=== PATIENT | female | born 1935 | race Caucasian/White ===

== ENCOUNTER 2020-05-12 10:54 | Outpatient (CLI) | payer MEDICARE, BC | END 2020-05-12 10:55 | disposition critical access hospital (66) | LOC: EMS 10:54 | PROVIDERS: ATTEND Emergency Medicine | DX: R55 Syncope and collapse (principal) | CPT/HCPCS: A0425; A0429 ==

== ENCOUNTER 2020-05-12 11:27 | Inpatient (IN) | payer MEDICARE, BC ==
--- NOTE | 2020-05-12 11:43 | ED Physician Documentation ---
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 Today she was sitting on the commode because she has been constipated and after she relieved the constipation she had a flood of diarrhea and following that she became diaphoretic nauseous and had a syncopal episode. She was brought to the floor by her family and picked up by medics who were unable to establish an IV in route. She indicates that she has pain in her spine and it is difficult to get in and out of bed and she has decreased her water intake to avoid going to the bathroom. She moved here 2 days ago. She has not had to do the work of moving. She has a radiation oncologist in [facility] and she has completed radiation to the left lung mass in January and the mass has shrunk. She developed back pain and a PET scan was done that has demonstrated wide spread bony metastasis and liver and GI mets. The patient does not currently have an oncologist but has an appointment to see Oncology in [place] on the of this month. She is being admitted to hospice tomorrow. She felt that this might be the end this morning. (She was hoping) Review of Systems Constitutional: denies: Fever Eyes: denies: Decreased vision Ears: denies: Ear pain Nose: denies: Congestion Throat: denies: Sore throat Cardiac: denies: Chest pain / pressure, Palpitations, Pedal edema, Calf pain Respiratory: reports: Dyspnea, Cough GI: reports: Nausea, Vomiting, Constipation, Diarrhea : denies: Dysuria, Frequency Skin: denies: Rash Musculoskeletal: denies: Neck pain, Back pain, Extremity pain Neurologic: reports: Generalized weakness. denies: Focal weakness, Numbness PD PAST MEDICAL HISTORY - Present Medications Home Medications: Ambulatory Orders Medication Instructions Recorded Confirmed Gabapentin [Neurontin] 300 mg PO DAILY PM 05/12/20 05/12/20 Hydrocodone/Acetaminophen 1 each PO PRN PRN 05/12/20 05/12/20 [Hydrocodone-Acetamin 10-300 mg] - Allergies Allergies/Adverse Reactions: Allergies Allergy/AdvReac Type Severity Reaction Status Date / Time metformin AdvReac Unknown Verified 05/12/20 12:25 PD ED PE NORMAL - Vitals Vital signs reviewed: Yes (Hypotensive) - General General: No acute distress, Well developed/nourished, Other (Pale appearing 84-year-old female who speaks quietly and takes effort to speak. She appears to be struggling for a breath as well. She periodically has some raspy breathing) - HEENT HEENT: Atraumatic, PERRL, EOMI - Neck Neck: Supple, no meningeal sign, No bony TTP - Cardiac Cardiac: RRR, No murmur - Respiratory Respiratory: Other - Abdomen Abdomen: Soft, Non tender - Back Back: No CVA TTP, No spinal TTP - Derm Derm: Normal color, Warm and dry, No rash - Extremities Extremities: No deformity, No edema, Other (legs are in compression hose. 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, No motor deficit, No sensory deficit, Normal speech Eye Opening: Spontaneous Motor: Obeys Commands Verbal: Oriented GCS Score: 15 - Psych Psych: Normal mood, Normal affect Results - Vitals Vitals: Vital Signs - 24 hr 05/12/20 05/12/20 05/12/20 11:28 12:59 13:45 Temperature 35.8 C L Heart Rate 86 73 Respiratory 16 19 Rate Blood Pressure 93/41 L 121/51 L 125/49 L O2 Saturation 93 96 05/12/20 05/12/20 14:57 16:09 Temperature Heart Rate 80 82 Respiratory 21 21 Rate Blood Pressure 144/59 H 104/94 H O2 Saturation 98 93 Oxygen O2 Source Room air - EKG (time done) 1138 Rate: Rate (enter#) (86) Rhythm: NSR Ischemia: Non specific changes Compare to prior EKG: Old EKG unavailable Computer interpretation: Agree with computer - Labs Labs: Laboratory Tests 05/12/20 05/12/20 05/12/20 12:16 12:16 12:38 WBC 17.2 H RBC 4.07 L Hgb 11.1 L Hct 36.4 L MCV 89.4 MCH 27.3 MCHC 30.5 L RDW 13.9 Plt Count 360 MPV 9.8 Neut # (Auto) 14.8 H Lymph # (Auto) 0.6 L Charles # (Auto) 0.8 Eos # (Auto) 0.7 Baso # (Auto) 0.1 Absolute Nucleated RBC 0.00 Nucleated RBC % 0.0 Sodium 139 Potassium 2.9 L Chloride 97 L Carbon Dioxide 26 Anion Gap 16.0 H BUN 30 H Creatinine 1.0 Estimated GFR (MDRD) 53 L Glucose 183 H Lactic Acid 1.7 Calcium 9.2 Total Bilirubin 0.6 AST 22 ALT 14 Alkaline Phosphatase 388 H Total Protein 5.7 L Albumin 2.8 L Globulin 2.9 Albumin/Globulin Ratio 1.0 Lipase 25 - Rads (name of study) chest Radiology: Prelim report reviewed (Impression: 1. No acute cardiopulmonary disease process. 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 She collapsed today with her level of dehydration. She responded to IV fluids but remains weak. Her daughter is wanting to take her home and has set up hospice for tomorrow. The patient feels profoundly weak and feels that she needs to be in the hospital. She will see oncology next week and she will refuse chemo. She may be amenable to a biologic and will need palliative care until her appointment with the oncologist. Departure - Departure Disposition: ED Place in Observation Clinical Impression: Hypokalemia, Dehydration, Metastatic adenocarcinoma, Syncope and collapse
[2020-05-12] MEDS ORDERED: SODIUM CHLORIDE 0.9% 1,000 ML IV STA ×2 (12:23→16:50)
[2020-05-12 12:30] LABS: BASOPHILS # (AUTO) 0.1 10^3/uL (0.0-0.1); BASOPHILS % (AUTO) 0.4 %; EOSINOPHILS # (AUTO) 0.7 10^3/uL (0.0-0.7); EOSINOPHILS % (AUTO) 3.8 %; HCT - HEMATOCRIT 36.4 % (37.0-47.0); HGB - HEMOGLOBIN 11.1 g/dL (12.0-16.0); LYMPHOCYTES # (AUTO) 0.6 10^3/uL (1.5-3.5); LYMPHOCYTES % (AUTO) 3.2 %; MEAN CORPUSCULAR HEMOGLOBIN 27.3 pg (27.0-31.0); MEAN CORPUSCULAR HGB CONC 30.5 g/dL (32.0-36.0); MEAN CORPUSCULAR VOLUME 89.4 fL (81.0-99.0); MEAN PLATELET VOLUME 9.8 fL (7.9-10.8); MONOCYTES # (AUTO) 0.8 10^3/uL (0.0-1.0); MONOCYTES % (AUTO) 4.7 %; NEUTROPHILS # (AUTO) 14.8 10^3/uL (1.5-6.6); NEUTROPHILS % (AUTO) 86.2 %; PLT - PLATELET COUNT 360 10^3/uL (130-450); RED BLOOD COUNT 4.07 10^6/uL (4.20-5.40); RED CELL DISTRIBUTION WIDTH 13.9 % (12.0-15.0); WHITE BLOOD COUNT 17.2 x10^3/uL (4.8-10.8)
[2020-05-12 12:39] LABS: ALBUMIN 2.8 g/dL (3.2-5.5); BILIRUBIN,TOTAL 0.6 mg/dL (0.2-1.0); CALCIUM 9.2 mg/dL (8.5-10.3); POTASSIUM 2.9 mmol/L (3.5-5.0); TOTAL PROTEIN 5.7 g/dL (6.7-8.2)
--- NOTE | 2020-05-12 12:56 | XRAY Report ---
PROCEDURE: Chest 1 View X-Ray INDICATIONS: soa TECHNIQUE: One view of the chest was acquired. COMPARISON: None FINDINGS: Surgical changes and devices: None. Lungs and pleura: No pleural effusions or pneumothorax. Lungs are clear. Mediastinum: Mediastinal contours appear normal. Heart size is normal. Bones and chest wall: Left sided rib fractures of indeterminate age. No suspicious bony lesions. Ov erlying soft tissues appear unremarkable. IMPRESSION: 1. No acute cardiopulmonary disease process. 2. Left third, fourth and fifth rib fractures of indeterminate age. Reviewed by: Shwetha Pro MD, PhD on 05/12/2020 12:54 PM PDT Approved by: Shwetha Pro MD, PhD on 05/12/2020 12:54 PM PDT Station ID: [id number]
[2020-05-12] MEDS ORDERED: POTASSIUM CHLOR 10 MEQ/100 ML 10 MEQ/100 ML BAG IV STA (13:13)
[2020-05-12] MEDS ORDERED: POTASSIUM CHLORIDE 20 MEQ TABLET PO STA (13:13)
[2020-05-12] MEDS ORDERED: FOLIC ACID INJ 1 MG, THIAMINE INJ 100 MG, MAGNESIUM SULFATE 2 GM, MULTIVITAMIN 10 ML in... IV STA ×5 (13:14)
[2020-05-12] MEDS ORDERED: POTASSIUM CHLORIDE 20 MEQ/15 ML UDC PO STA (13:26)
[2020-05-12] MEDS ORDERED: ONDANSETRON 4 MG/2 ML VIAL IVP PRN (16:59)
[2020-05-12] MEDS ORDERED: ONDANSETRON ODT 4 MG TABLET TL PRN (16:59)
[2020-05-12 17:00] LABS: BILIRUBIN,URINE NEGATIVE (NEGATIVE); GLUCOSE, URINE (UA) NEGATIVE (NEGATIVE); KETONES,URINE (UA) NEGATIVE (NEGATIVE); LEUKOCYTE ESTERASE, URINE SMALL (NEGATIVE); NITRITE,URINE POSITIVE (NEGATIVE); OCCULT BLOOD,URINE NEGATIVE (NEGATIVE); PH,URINE 5.5 PH (5.0-7.5); PROTEIN,URINE TRACE mg/dL (NEGATIVE); UROBILINOGEN,URINE 0.2 (NORMAL) E.U./dL (NORMAL)
[2020-05-12 17:01] LABS: CLARITY,URINE CLOUDY (CLEAR)
[2020-05-12] MEDS ORDERED: oxyCODONE 5 MG TABLET PO PRN (17:04)
[2020-05-12 17:10] LABS: BACTERIA,URINE Many /HPF (None Seen); MUCUS,URINE Few Strands; RBC,URINE 0-5 /HPF (0-5); SQUAMOUS EPITHELIAL CELL,UR MANY Squamous (<= Few); WBC,URINE >25 /HPF (0-5)
--- NOTE | 2020-05-12 18:21 | HISTORY & PHYSICAL EXAMINATION ---
Chief Complaint - Chief Complaint Chief Complaint: Passed out History of Present Illness - Admitted From Admitted From:: Home - History Obtained From Records Reviewed: Yes History obtained from: Patient, Daughter, ER Physician, EMR, Outside records. 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 She tells me that she has been quite weak and fatigued these past few days with poor oral intake. She also had diarrhea a few days ago which stopped and then she became constipated. This morning she went to go have a bowel movement she had another episode of diarrhea when all of a sudden she felt nauseous, she did not vomit, a nd diaphoretic. She passed out immediately after. She reports no chest pain or palpitations from what she can recall prior to the event. She reports no prior episodes of syncope. She currently denies any chest pain or dyspnea. She reports an occasional cough that occurs just at night. She recently had a PET scan as there was concern for metastatic disease and this did unfortunately confirm metastatic disease involving most of her bones as well as liver metastasis. She had just moved to [facility] from [place] just 2 days ago to be closer to her daughter. She is scheduled to see oncology at [facility] in [place] in about 8 days for follow-up. I did speak with the patient's daughter who states that she contacted hospice and there was a plan to possibly admit her under hospice care tomorrow. The patient has made it quite clear that she does not want any aggressive treatment. She would not want chemotherapy even if it was offered to her. She states that she has not been ambulating very much due to left leg pain at the hip which has been present for quite a few months. She normally uses a walker to help her pivot into a wheelchair which she uses to get around. She reports minimal abdominal pain at this time. She has not noticed any blood in her stool. Denies any dysuria, urgency. She denies any focal deficits just feels generally weak. In the emergency department, she was found to be afebrile. Her heart rate was in the 80s. She was initially hypotensive with systolic in the 90s but this improved after receiving IV fluids. She was not tachypneic and saturating well on room air. Were significant for a white count of 17.2 with a left shift. Her potassium was 2.9. BUN was 30 and her creatinine was 1.0. Chest x-ray revealed 3 left rib fractures of undetermined age. Given her presentation, medicine was consulted for admission. I did discuss goals of care with the patient who confirms that she is a DNR. History - Past Medical History Cardiovascular: reports: Hypertension Respiratory: reports: None, Other (Adenocarcinoma of the left upper lobe.) Neuro: reports: None Endocrine/Autoimmune: reports: HyPOthyroidism GI: reports: GERD - Family & Social History Family History Comment/Other: Her mother in her 40s from breast cancer. Living arrangement: At home Living Situation: With family Social History Notes: She moved from [facility] to be closer to her daughter. She smoked a pack a day for about 35 years but quit in the early s. Meds/Allgy - Home Medications Home Medications: Ambulatory Orders Medication Instructions Recorded Confirmed Aspirin [[place] Aspirin] 81 mg PO 05/12/20 Gabapentin [Neurontin] 300 mg PO DAILY PM 05/12/20 05/12/20 Hydrochlorothiazide 05/12/20 Hydrocodone/Acetaminophen 1 each PO PRN PRN 05/12/20 05/12/20 [Hydrocodone-Acetamin 10-300 mg] Lisinopril [Prinivil] 10 mg PO 05/12/20 Omeprazole Magnesium 20 mg PO 05/12/20 traZODone [Desyrel] 100 mg PO HS 05/12/20 05/12/20 - Allergies Allergies/Adverse Reactions: Allergies Allergy/AdvReac Type Severity Reaction Status Date / Time metformin AdvReac Unknown Verified 05/12/20 12:25 Review of Systems - Constitutional Constitutional: reports: Fatigue, Malaise, Weakness, Poor appetite. denies: Fever, Chills - Ears, Nose & Throat Ears, Nose & Throat: denies: Nasal discharge - Cardiovascular Cariovascular: reports: Syncope. denies: Chest pain, Edema, Exertional dyspnea, Decr. exercise tolerance - Respiratory Respiratory: reports: Cough, Sputum production. denies: SOB at rest, SOB with exertion - Gastrointestinal Gastrointestinal: reports: Diarrhea, Change in bowel habits, Nausea. denies: Abdominal pain, Bloody stools, Vomiting - Genitourinary Genitourinary: denies: Dysuria, Urgency - Musculoskeletal Musculoskeletal: reports: Muscle pain, Limited range of motion, Joint pain - Integumentary Integumentary: denies: Rash - Neurological Neurological: reports: General weakness. denies: Focal weakness, Numbness - All Other Systems All Other Systems: reports: Reviewed and negative Prior Level of Functionality: She fortunately has declined from a physical standpoint. She mainly gets around with a wheelchair and will use a walker to pivot. Exam - Vital Signs Reviewed Vital Signs: Yes Vital Signs: Vital Signs x48h Temp Pulse Resp BP Pulse Ox 05/12/20 17:14 83 22 133/57 H 97 05/12/20 16:09 82 21 104/94 H 93 05/12/20 14:57 80 21 144/59 H 98 05/12/20 13:45 73 19 125/49 L 96 05/12/20 12:59 121/51 L 05/12/20 11:28 35.8 C L 86 16 93/41 L 93 - Physical Exam General Appearance: positive: No acute distress, Alert Eyes Bilateral: positive: Normal inspection, Conjunctivae nml ENT: positive: Dry mucous membranes. negative: No signs of dehydration Neck: positive: Nml inspection Respiratory: positive: No respiratory distress. negative: Wheezes, Rales Cardiovascular: positive: Regular rate & rhythm, Systolic murmur. negative: Tachycardia Abdomen: positive: Non-tender, No distention. negative: Tenderness Skin: positive: Warm, Dry Extremities: positive: No pedal edema, Other (No left lower extremity deformity or tenderness upon palpation.) Neurologic/Psychiatric: negative: Disoriented to person, Disoriented to place Conclusion/Plan - Problem List (1) Syncope and collapse Conclusion/Plan: This appears to be a vasovagal episode but this caused related to orthostasis given her poor oral intake. She does have a murmur on exam as well so this could be of cardiac etiology. Her EKG did reveal 1 PVC otherwise it was just a sinus rhythm. Troponin is pending. At this time we will hydrate her with IV fluids and check orthostatics. Obtain echocardiogram. Monitor on telemetry. We will hope to discharge her tomorrow. (2) Hypertension Conclusion/Plan: Her blood pressure is now stable in the 130 systolic. She was initially hypotensive. We will look to resume her home antihypertensives tomorrow. (3) Diarrhea Conclusion/Plan: This is a likely cause of her dehydration and likely contributed to her syncope. She has continued to have diarrhea in the emergency department. We will check C. difficile at this is negative we will start her on Imodium as needed. Continue IV fluids. Diet as tolerated. (4) Metastatic adenocarcinoma Conclusion/Plan: She unfortunately has metastatic adenocarcinoma of the lung. This was confirmed on PET scan. She is following up with oncology next week at [facility] in [place] and family has already discussed hospice with the patient likely being evaluated tomorrow. She will continue outpatient follow-up once discharged. (5) Dehydration Conclusion/Plan: She does appeared dehydrated despite her normal renal function. She has dry oral mucosa. Is likely due to poor oral intake and diarrhea. We will hydrate her with IV fluids and check her stool for C. difficile. (6) Left hip pain Conclusion/Plan: She complains of left hip pain. Given the metastatic disease, will obtain an x- ray to rule out metastatic disease as a cause of her pain. We will continue her home medications. (7) Hypokalemia Conclusion/Plan: This is likely related to GI losses. We will replete this. - Lab Results Lab results reviewed: Yes Fish Bones: 05/12/20 12:16 05/12/20 12:16 - Diagnostic Imaging Results Diagnostic Imaging Results: positive: Final report reviewed - EKG Results EKG Interpreted Independently: Yes EKG Comparison: Old EKG unavailable EKG Findings: She reveals a sinus rhythm with [address] segment changes Core Measures - Anticipated LOS I expect patient to be DC'd or transferred within 96 hours.: Yes - Issues Hospital Issues and Management Plan: 84-year-old female with metastatic lung cancer presents with syncope likely due to a vasovagal episode or orthostasis from diarrhea. Will place in observation for IV fluids, echocardiogram, telemetry. - DVT/VTE - Prophylaxis VTE/DVT Device ordered at admit?: Yes VTE/DVT Prophylaxis med ordered at admit?: Yes
[2020-05-12] MEDS: LACTATED RINGERS 1,000 ML IV SCH (18:40)
[2020-05-12] MEDS: SODIUM CHLORIDE FLUSH 0.9% 10 ML SYRINGE IVP SCH ×2 (18:47→23:39)
[2020-05-12 19:05] LABS: B. PARAPERTUSSIS- RESP PCR PAN NOT DETECTED; B. PERTUSSIS- RESP PCR PANEL NOT DETECTED; C. PNEUMONIAE- RESP PCR PANEL NOT DETECTED; CORONAVIRUS 229E-RESP PCR NOT DETECTED; CORONAVIRUS HKU1-RESP PCR NOT DETECTED; CORONAVIRUS NL63-RESP PCR NOT DETECTED; CORONAVIRUS OC43-RESP PCR NOT DETECTED; HUMAN METAPNEUMOVIRUS NOT DETECTED; INFLUENZA A- RESP PCR PANEL NOT DETECTED; INFLUENZA B - RESP PCR PANEL NOT DETECTED; M. PNEUMONIAE- RESP PCR PANEL NOT DETECTED; PARAINFLUENZA VIRUS 1 NOT DETECTED; PARAINFLUENZA VIRUS 2 NOT DETECTED; PARAINFLUENZA VIRUS 3 NOT DETECTED; PARAINFLUENZA VIRUS 4 NOT DETECTED; RHINOVIRUS/ENTEROVIRUS NOT DETECTED; RSV- RESP PCR PANEL NOT DETECTED; SARS-CoV-2 -RESP PCR PANEL NOT DETECTED
--- NOTE | 2020-05-12 19:52 | XRAY Report ---
PROCEDURE: Hip w/Pelvis 2-3V LT INDICATIONS: Left hip pain; metastatic lung cancer TECHNIQUE: AP pelvis with lateral view(s) of the bilateral hip(s). COMPARISON: None. FINDINGS: Exam is limited by osseous demineralization and patient body habitus. Somewhat abnormal lytic appeara nce of the left femoral head when compared with the right, nonspecific. No definite evidence of fract ure or discrete lesion. The remainder of the bony pelvis appears intact. IMPRESSION: Nonspecific asymmetric lytic appearance of the left femoral head. This examination is li mited by body habitus and demineralized appearance of the bones. CT or MRI examination of the left hi p recommended if there is concern for fracture or metastasis. Reviewed by: Michele Baeza MD on 05/12/2020 7:51 PM PDT Approved by: Michele Baeza MD on 05/12/2020 7:51 PM PDT Station ID: [id number]
[2020-05-12] MEDS: traZODone 50 MG TABLET PO SCH (20:24)
[2020-05-12] MEDS: GABAPENTIN 300 MG CAPSULE PO SCH (20:24)
[2020-05-12] MEDS: HYDROcod/ACETAM 10 MG/325 MG TABLET PO PRN (20:24)
[2020-05-12] MEDS: ACETAMINOPHEN 325 MG TABLET PO PRN (23:46)
[2020-05-13] MEDS: HYDROcod/ACETAM 10 MG/325 MG TABLET PO PRN ×5 (00:23→20:27)
[2020-05-13] MEDS: LACTATED RINGERS 1,000 ML IV SCH (04:58)
[2020-05-13 05:25] LABS: BASOPHILS # (AUTO) 0.1 10^3/uL (0.0-0.1); BASOPHILS % (AUTO) 0.4 %; EOSINOPHILS # (AUTO) 0.9 10^3/uL (0.0-0.7); EOSINOPHILS % (AUTO) 6.2 %; HCT - HEMATOCRIT 31.5 % (37.0-47.0); HGB - HEMOGLOBIN 9.5 g/dL (12.0-16.0); LYMPHOCYTES # (AUTO) 1.1 10^3/uL (1.5-3.5); LYMPHOCYTES % (AUTO) 7.9 %; MEAN CORPUSCULAR HEMOGLOBIN 27.5 pg (27.0-31.0); MEAN CORPUSCULAR HGB CONC 30.2 g/dL (32.0-36.0); MEAN PLATELET VOLUME 9.8 fL (7.9-10.8); MONOCYTES # (AUTO) 1.1 10^3/uL (0.0-1.0); MONOCYTES % (AUTO) 7.4 %; NEUTROPHILS % (AUTO) 76.6 %; PLT - PLATELET COUNT 328 10^3/uL (130-450); RED BLOOD COUNT 3.46 10^6/uL (4.20-5.40); RED CELL DISTRIBUTION WIDTH 14.2 % (12.0-15.0); WHITE BLOOD COUNT 14.4 x10^3/uL (4.8-10.8)
[2020-05-13 05:31] LABS: CALCIUM 8.5 mg/dL (8.5-10.3); CREATININE 0.7 mg/dL (0.4-1.0); MAGNESIUM 2.2 mg/dL (1.7-2.8); POTASSIUM 2.9 mmol/L (3.5-5.0)
[2020-05-13] MEDS: ENOXAPARIN 40 MG/0.4 ML SYRINGE SUBQ SCH (08:06)
[2020-05-13] MEDS: ACETAMINOPHEN 325 MG TABLET PO PRN (08:06)
[2020-05-13] MEDS: SODIUM CHLORIDE FLUSH 0.9% 10 ML SYRINGE IVP SCH ×2 (08:06→16:33)
--- NOTE | 2020-05-13 08:09 | PHARMACY PROGRESS NOTE ---
- Best Possible Medication History Admit Date and Time: 05/12/20 1659 Processed by: Pharmacy Medication History completed: Yes Patient Interview: Completed Secondary Source(s): Pharmacy records As the person ultimately responsible for medication therapy, providers are able to order a medication from an existing home medication list in [facility] via the "Reconcile Routine" prior to Confirmation of that medication by learning support assistant. Such practice is discouraged except when the physician, in their clinical judgment, deems that a medical need exists for a medication without regard to previous use.
[2020-05-13] MEDS ORDERED: PIPERACILLIN/TAZOBACTAM 3.375 GM in SODIUM CHLORIDE 0.9% MINIBAG 100 ML IV SCH (09:00)
[2020-05-13] MEDS ORDERED: oxyCODONE 5 MG TABLET PO PRN (09:18)
[2020-05-13] MEDS ORDERED: POTASSIUM CHLORIDE INJ 40 MEQ in DEXTROSE 5%-0.45% NACL 980 ML IV SCH (10:00)
--- NOTE | 2020-05-13 10:26 | XRAY Report ---
PROCEDURE: Chest 1 View X-Ray INDICATIONS: SOB TECHNIQUE: One view of the chest was acquired. COMPARISON: 05/12/2020 FINDINGS: Surgical changes and devices: None. Lungs and pleura: No pleural effusions or pneumothorax. There is a vague left apical opacity. Cannot exclude a left upper lobe lung mass. Mediastinum: Enlarged central pulmonary vasculature may indicate pulmonary arterial hypertension. Hea rt size is normal. Bones and chest wall: No suspicious bony lesions. Multiple age indeterminate left rib fractures. Ove rlying soft tissues appear unremarkable. Chronic right rotator cuff tear. Right glenohumeral joint d egenerative change. IMPRESSION: 1. Vague opacity projects to the left apex. It potentially may represent a left upper lobe lung mass. CT chest is recommended. 2. Age-indeterminate left rib fractures. 3. Question pulmonary arterial hypertension. Above discussed with Dr. Klein at the time of dictation on 05/13/2020 at 1024 hours. Reviewed by: Nasim Nicholas MD on 05/13/2020 10:24 AM PDT Approved by: Nasim Nicholas MD on 05/13/2020 10:24 AM PDT Station ID: [id number]
[2020-05-13] MEDS: cefTRIAXone 2 GM in SODIUM CHLORIDE 0.9% MINIBAG 100 ML IV SCH (11:52)
[2020-05-13] MEDS: SODIUM CHLORIDE FLUSH 0.9% 10 ML SYRINGE IVP PRN ×2 (11:58→12:03)
[2020-05-13] MEDS ORDERED: POTASSIUM CHLORIDE 20 MEQ TABLET PO ONE (12:04)
[2020-05-13] MEDS: SACCHAROMYCES BOULARDII 250 MG CAPSULE PO SCH ×2 (12:14→16:34)
[2020-05-13] MEDS: AZITHROMYCIN 250 MG TABLET PO SCH (12:14)
[2020-05-13] MEDS: POTASSIUM CHLOR 10 MEQ/100 ML 10 MEQ/100 ML BAG IV SCH ×6 (12:46→21:27)
[2020-05-13] MEDS: SODIUM CHLORIDE 0.9% 1,000 ML IV SCH (13:37)
--- NOTE | 2020-05-13 14:33 | PROVIDER PROGRESS NOTE ---
Subjective - Subjective Pt reports feeling: No change Subjective: Patient is alert and orientated on today. Patient reported she feels tired, Poor appetite. She did report she wanted to have hospice care. Patient understood her metastasis lung cancer disease. Current Medications - Current Medications Current Medications: Active Medications Acetaminophen (Acetaminophen 325 Mg Tablet) 650 mg PO Q4HR PRN PRN Reason: Pain 1 to 4 Last Admin: 05/13/20 08:06 Dose: 650 mg Documented by: Hydrocodone Bitart/Acetaminophen (Hydrocod/Acetam 10 Mg/325 Mg Tablet) 1 tab PO Q4HR PRN PRN Reason: PAIN Last Admin: 05/13/20 08:06 Dose: 1 tab Documented by: Azithromycin (Azithromycin 250 Mg Tablet) 500 mg PO DAILY [facility] Stop: 05/15/20 09:01 Last Admin: 05/13/20 12:14 Dose: 500 mg Documented by: Enoxaparin Sodium (Enoxaparin 40 Mg/0.4 Ml Syringe) 40 mg SUBQ DAILY [facility] Last Admin: 05/13/20 08:06 Dose: 40 mg Documented by: Gabapentin (Gabapentin 300 Mg Capsule) 300 mg PO QPM [facility] Last Admin: 05/12/20 20:24 Dose: 300 mg Documented by: Potassium Chloride (Potassium Chloride) 10 meq in 100 mls @ 100 mls/hr IV Q1H [facility] Stop: 05/13/20 15:59 Last Admin: 05/13/20 12:46 Dose: 100 mls/hr Documented by: Ceftriaxone Sodium 2 gm/ (Sodium Chloride) 100 mls @ 200 mls/hr IV DAILY [facility] Last Infusion: 05/13/20 12:25 Dose: Infused Documented by: Sodium Chloride (Normal Saline 0.9%) 1,000 mls @ 83.333 mls/hr IV .Q12H [facility] Stop: 05/14/20 13:59 Last Admin: 05/13/20 13:37 Dose: 83.333 mls/hr Documented by: Ondansetron HCl (Ondansetron 4 Mg/2 Ml Vial) 4 mg IVP Q6HR PRN PRN Reason: Nausea / Vomiting Last Admin: 05/12/20 18:39 Dose: 4 mg Documented by: Ondansetron HCl (Ondansetron Odt 4 Mg Tablet) 4 mg TL Q6HR PRN PRN Reason: Nausea / Vomiting Oxycodone HCl (Oxycodone 5 Mg Tablet) 5 mg PO Q4HR PRN PRN Reason: PAIN Saccharomyces Boulardii (Saccharomyces Boulardii 250 Mg Capsule) 250 mg PO BIDWM [facility] Last Admin: 05/13/20 12:14 Dose: 250 mg Documented by: Sodium Chloride (Sodium Chloride Flush 0.9% 10 Ml Syringe) 10 ml IVP PRN PRN PRN Reason: NEEDED PER PROVIDER ORDERS Last Admin: 05/13/20 12:03 Dose: 10 ml Documented by: Sodium Chloride (Sodium Chloride Flush 0.9% 10 Ml Syringe) 10 ml IVP 0100,0900,1700 [facility] Last Admin: 05/13/20 08:06 Dose: 10 ml Documented by: Trazodone HCl (Trazodone 50 Mg Tablet) 100 mg PO QPM [facility] Last Admin: 05/12/20 20:24 Dose: 100 mg Documented by: Aspirin [[place] Aspirin] 81 mg PO DAILY 05/12/20 Gabapentin [Neurontin] 300 mg PO DAILY PM 05/12/20 Hydrochlorothiazide 25 mg PO DAILY 05/12/20 Lisinopril [Prinivil] 10 mg PO DAILY 05/12/20 Omeprazole Magnesium 20 mg PO QDAC 05/12/20 traZODone [Desyrel] 100 mg PO HS 05/12/20 HYDROcod/ACETAM 5/325 [[place] 5/325] 1 tab PO Q4H PRN 05/13/20 amLODIPine [Norvasc] 5 mg PO DAILY 05/13/20 Objective - Vital Signs/Intake & Output Vital Signs: Vital Signs x48h Temp Pulse Resp BP Pulse Ox 05/13/20 12:50 36.7 C 78 20 115/39 L 93 05/13/20 08:14 37.4 C 89 18 98/70 91 L Intake & Output: Intake & Output 05/10/20 05/11/20 05/12/20 05/13/20 23:59 23:59 23:59 23:59 Intake Total 4130.2 1731 Output Total 250 900 Balance 3880.2 831 - Objective General Appearance: positive: No acute distress, Alert. negative: Lethargic Eyes Bilateral: positive: Normal inspection, PERRL, No lid inflammation ENT: positive: ENT inspection nml, No signs of dehydration. negative: Purulent nasal drainage Neck: positive: Nml inspection, Trachea midline. negative: Thyromegaly, Tracheal deviation Respiratory: positive: Chest non-tender, Rales. negative: Breath sounds nml, Wheezes Cardiovascular: positive: Regular rate & rhythm, No murmur. negative: Tachycardia, Bradycardia, Systolic murmur, Diastolic murmur Peripheral Pulses: 2+ Radial (R), 2+ Radial (L) Abdomen: positive: Non-tender, Nml bowel sounds, No distention. negative: Tenderness, Guarding, Rebound Back: positive: Nml inspection Skin: positive: Color nml, Warm, Dry. negative: Cyanosis, Diaphoresis, Pallor Extremities: positive: Non-tender, Nml appearance. negative: Calf tenderness Neurologic/Psychiatric: positive: Oriented x3, Sensation nml, Mood/affect nml. negative: Weakness, Sensory loss, Facial droop, Slurred/abnml speech - Lab Results Fish Bones: 05/13/20 04:47 05/13/20 04:47 Other Labs: Lab Results x24hrs 05/13/20 05/13/20 05/12/20 Range/Units 04:47 04:47 21:45 WBC 14.4 H (4.8-10.8) x10^3/uL RBC 3.46 L (4.20-5.40) 10^6/uL Hgb 9.5 L (12.0-16.0) g/dL Hct 31.5 L (37.0-47.0) % MCV 91.0 (81.0-99.0) fL MCH 27.5 (27.0-31.0) pg MCHC 30.2 L (32.0-36.0) g/dL RDW 14.2 (12.0-15.0) % Plt Count 328 (130-450) 10^3/uL MPV 9.8 (7.9-10.8) fL Neut # (Auto) 11.0 H (1.5-6.6) 10^3/uL Lymph # (Auto) 1.1 L (1.5-3.5) 10^3/uL [place] # (Auto) 1.1 H (0.0-1.0) 10^3/uL Eos # (Auto) 0.9 H (0.0-0.7) 10^3/uL Baso # (Auto) 0.1 (0.0-0.1) 10^3/uL Absolute Nucleated RBC 0.00 x10^3/uL Nucleated RBC % 0.0 /100WBC Sodium 137 (135-145) mmol/L Potassium 2.9 L (3.5-5.0) mmol/L Chloride 100 L (101-111) mmol/L Carbon Dioxide 25 (21-32) mmol/L Anion Gap 12.0 (6-13) BUN 29 H (6-20) mg/dL Creatinine 0.7 (0.4-1.0) mg/dL Estimated GFR (MDRD) 80 L (>89) Glucose 119 H (70-100) mg/dL Calcium 8.5 (8.5-10.3) mg/dL Magnesium 2.2 (1.7-2.8) mg/dL Troponin I High Sens (2.3-14.8) ng/L Urine Color Urine Clarity (CLEAR) Urine pH (5.0-7.5) PH Ur Specific [place] (1.002-1.030) Urine Protein (NEGATIVE) mg/dL Urine Glucose (UA) (NEGATIVE) mg/dL Urine Ketones (NEGATIVE) mg/dL Urine Occult Blood (NEGATIVE) Urine Nitrite (NEGATIVE) Urine Bilirubin (NEGATIVE) Urine Urobilinogen (NORMAL) E.U./dL Ur Leukocyte Esterase (NEGATIVE) Urine RBC (0-5) /HPF Urine WBC (0-5) /HPF Ur Squamous Epith Cells (<= Few) Urine Bacteria (None Seen) /HPF Urine Mucus Ur Microscopic Review Urine Culture Comments Nasal Adenovirus (PCR) Nasal B. parapertussis DNA (PCR) Nasal Coronavir 229E PCR Nasal Coronavir HKU1 PCR Nasal Coronavir NL63 PCR Nasal Coronavir OC43 PCR Nasal Enterovir/Rhinovir PCR Nasal Influenza B PCR Nasal Influenza A PCR Nasal Parainfluen 1 PCR Nasal Parainfluen 2 PCR Nasal Parainfluen 3 PCR Nasal Parainfluen 4 PCR Nasal RSV (PCR) Nasal B.pertussis DNA PCR Nasal C.pneumoniae (PCR) Kenny Human Metapneumo PCR Nasal M.pneumoniae (PCR) Nasal SARS-CoV-2 (PCR) Stl C. diff Tox B Gene NEGATIVE (NEGATIVE) 03/22/21 03/22/21 03/22/21 Range/Units 21:25 18:51 18:51 WBC (4.8-10.8) x10^3/uL RBC (4.20-5.40) 10^6/uL Hgb (12.0-16.0) g/dL Hct (37.0-47.0) % MCV (81.0-99.0) fL MCH (27.0-31.0) pg MCHC (32.0-36.0) g/dL RDW (12.0-15.0) % Plt Count (130-450) 10^3/uL MPV (7.9-10.8) fL Neut # (Auto) (1.5-6.6) 10^3/uL Lymph # (Auto) (1.5-3.5) 10^3/uL [place] # (Auto) (0.0-1.0) 10^3/uL Eos # (Auto) (0.0-0.7) 10^3/uL Baso # (Auto) (0.0-0.1) 10^3/uL Absolute Nucleated RBC x10^3/uL Nucleated RBC % /100WBC Sodium (135-145) mmol/L Potassium (3.5-5.0) mmol/L Chloride (101-111) mmol/L Carbon Dioxide (21-32) mmol/L Anion Gap (6-13) BUN (6-20) mg/dL Creatinine (0.4-1.0) mg/dL Estimated GFR (MDRD) (>89) Glucose (70-100) mg/dL Calcium (8.5-10.3) mg/dL Magnesium 2.6 (1.7-2.8) mg/dL Troponin I High Sens 15.9 H* 21.1 H* (2.3-14.8) ng/L Urine Color Urine Clarity (CLEAR) Urine pH (5.0-7.5) PH Ur Specific [place] (1.002-1.030) Urine Protein (NEGATIVE) mg/dL Urine Glucose (UA) (NEGATIVE) mg/dL Urine Ketones (NEGATIVE) mg/dL Urine Occult Blood (NEGATIVE) Urine Nitrite (NEGATIVE) Urine Bilirubin (NEGATIVE) Urine Urobilinogen (NORMAL) E.U./dL Ur Leukocyte Esterase (NEGATIVE) Urine RBC (0-5) /HPF Urine WBC (0-5) /HPF Ur Squamous Epith Cells (<= Few) Urine Bacteria (None Seen) /HPF Urine Mucus Ur Microscopic Review Urine Culture Comments Nasal Adenovirus (PCR) Nasal B. parapertussis DNA (PCR) Nasal Coronavir 229E PCR Nasal Coronavir HKU1 PCR Nasal Coronavir NL63 PCR Nasal Coronavir OC43 PCR Nasal Enterovir/Rhinovir PCR Nasal Influenza B PCR Nasal Influenza A PCR Nasal Parainfluen 1 PCR Nasal Parainfluen 2 PCR Nasal Parainfluen 3 PCR Nasal Parainfluen 4 PCR Nasal RSV (PCR) Nasal B.pertussis DNA PCR Nasal C.pneumoniae (PCR) Kenny Human Metapneumo PCR Nasal M.pneumoniae (PCR) Nasal SARS-CoV-2 (PCR) Stl C. diff Tox B Gene (NEGATIVE) 05/12/20 05/12/20 Range/Units 18:05 16:55 WBC (4.8-10.8) x10^3/uL RBC (4.20-5.40) 10^6/uL Hgb (12.0-16.0) g/dL Hct (37.0-47.0) % MCV (81.0-99.0) fL MCH (27.0-31.0) pg MCHC (32.0-36.0) g/dL RDW (12.0-15.0) % Plt Count (130-450) 10^3/uL MPV (7.9-10.8) fL Neut # (Auto) (1.5-6.6) 10^3/uL Lymph # (Auto) (1.5-3.5) 10^3/uL [place] # (Auto) (0.0-1.0) 10^3/uL Eos # (Auto) (0.0-0.7) 10^3/uL Baso # (Auto) (0.0-0.1) 10^3/uL Absolute Nucleated RBC x10^3/uL Nucleated RBC % /100WBC Sodium (135-145) mmol/L Potassium (3.5-5.0) mmol/L Chloride (101-111) mmol/L Carbon Dioxide (21-32) mmol/L Anion Gap (6-13) BUN (6-20) mg/dL Creatinine (0.4-1.0) mg/dL Estimated GFR (MDRD) (>89) Glucose (70-100) mg/dL Calcium (8.5-10.3) mg/dL Magnesium (1.7-2.8) mg/dL Troponin I High Sens (2.3-14.8) ng/L Urine Color YELLOW Urine Clarity CLOUDY (CLEAR) Urine pH 5.5 (5.0-7.5) PH Ur Specific [place] 1.020 (1.002-1.030) Urine Protein TRACE (NEGATIVE) mg/dL Urine Glucose (UA) NEGATIVE (NEGATIVE) mg/dL Urine Ketones NEGATIVE (NEGATIVE) mg/dL Urine Occult Blood NEGATIVE (NEGATIVE) Urine Nitrite POSITIVE H (NEGATIVE) Urine Bilirubin NEGATIVE (NEGATIVE) Urine Urobilinogen 0.2 (NORMAL) (NORMAL) E.U./dL Ur Leukocyte Esterase SMALL H (NEGATIVE) Urine RBC 0-5 (0-5) /HPF Urine WBC >25 H (0-5) /HPF Ur Squamous Epith Cells MANY Squamous H (<= Few) Urine Bacteria Many H (None Seen) /HPF Urine Mucus Few Strands Ur Microscopic Review INDICATED Urine Culture Comments NOT INDICATED Nasal Adenovirus (PCR) NOT DETECTED Nasal B. parapertussis DNA (PCR) NOT DETECTED Nasal Coronavir 229E PCR NOT DETECTED Nasal Coronavir HKU1 PCR NOT DETECTED Nasal Coronavir NL63 PCR NOT DETECTED Nasal Coronavir OC43 PCR NOT DETECTED Nasal Enterovir/Rhinovir PCR NOT DETECTED Nasal Influenza B PCR NOT DETECTED Nasal Influenza A PCR NOT DETECTED Nasal Parainfluen 1 PCR NOT DETECTED Nasal Parainfluen 2 PCR NOT DETECTED Nasal Parainfluen 3 PCR NOT DETECTED Nasal Parainfluen 4 PCR NOT DETECTED Nasal RSV (PCR) NOT DETECTED Nasal B.pertussis DNA PCR NOT DETECTED Nasal C.pneumoniae (PCR) NOT DETECTED [place] Human Metapneumo PCR NOT DETECTED Nasal M.pneumoniae (PCR) NOT DETECTED Nasal SARS-CoV-2 (PCR) NOT DETECTED Stl C. diff Tox B Gene (NEGATIVE) ABX Reporting Has patient been on IV antibiotics over the past 48 hours?: Yes Sepsis Event Note (H) - Evaluation Current Stage of Sepsis: Sepsis Possible source of Sepsis: positive: Pulmonary - Sepsis Criteria Sepsis Criteria: Recorded Temperature greater than 38.3C or Less than 36C, WBC count greater than 12,000 or less than 4000 Assessment/Plan - Problem List (1) Sepsis Impression: 05/13 pt had Fever on last night, patient had elevated WBC, patient oxygen saturation is drop with cough. We will treat patient with antibiotics azithromycin, Rocephin, Add probiotics. Continue intravenous IV fluids. Patient's blood culture showed negative for bacteremia now. (2)pneumonia 05/13 patient is Likely to have pneumonia, patient had elevated WBC, patient had fever, patient had oxygen saturation drop with cough. will check CXR. 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 Hospice team meet patient on today, plan to discharge patient to home on tomorrow with hospice care. (5) Metastatic adenocarcinoma Conclusion/Plan: She unfortunately has metastatic adenocarcinoma of the lung. This was confirmed on PET scan. She is following up with oncology next week at [facility] in [place] and family has already discussed hospice with the patient. Patient hope to have hospice care. hospice team already meet patient and plan to have hospice care on discharge tomorrow. (6) Syncope and collapse Conclusion/Plan: 05/13 This appears to be a vasovagal episode but this caused related to orthostasis given her poor oral intake. Patient will have hospice care on discharge to home on tomorrow, we will hold echo study at this time. (7) Hypertension Conclusion/Plan: stable, (8) Diarrhea Conclusion/Plan: 05/13 his is a likely cause of her dehydration and likely contributed to her syncope. pt'as diarrhea is good controlled on today. C. difficile is negative, we will Continue IV fluids. Diet as tolerated. (9) Dehydration Conclusion/Plan: 05/13 improved. Is likely due to poor oral intake and diarrhea. We will hydrate her with IV fluids (10) Left hip pain Conclusion/Plan: 05/13 She still complains of left hip pain. x-ray of left hip show asymmetric lytic repeal of left femur head. Patient has metastatic lung disease to the bone and liver. We will give patient pain control. Follow-up with hospice care and plan discharge on tomorrow.
[2020-05-13] MEDS: GABAPENTIN 300 MG CAPSULE PO SCH (21:27)
[2020-05-13] MEDS: traZODone 50 MG TABLET PO SCH (21:27)
[2020-05-13] MEDS ORDERED: POTASSIUM CHLOR 10 MEQ/100 ML 10 MEQ/100 ML BAG IV ONE (21:35)
[2020-05-14] MEDS: SODIUM CHLORIDE 0.9% 1,000 ML IV SCH (01:35)
[2020-05-14] MEDS: SODIUM CHLORIDE FLUSH 0.9% 10 ML SYRINGE IVP SCH ×2 (01:36→08:46)
[2020-05-14] MEDS: HYDROcod/ACETAM 10 MG/325 MG TABLET PO PRN ×3 (04:16→12:28)
[2020-05-14 05:06] LABS: BASOPHILS % (AUTO) 0.5 %; EOSINOPHILS % (AUTO) 12.4 %; HGB - HEMOGLOBIN 8.7 g/dL (12.0-16.0); LYMPHOCYTES % (AUTO) 8.6 %; MEAN CORPUSCULAR HEMOGLOBIN 27.2 pg (27.0-31.0); MEAN CORPUSCULAR VOLUME 90.6 fL (81.0-99.0); MEAN PLATELET VOLUME 9.6 fL (7.9-10.8); MONOCYTES % (AUTO) 6.4 %; PLT - PLATELET COUNT 276 10^3/uL (130-450); RED CELL DISTRIBUTION WIDTH 14.1 % (12.0-15.0)
[2020-05-14 05:14] LABS: CALCIUM 8.7 mg/dL (8.5-10.3); CREATININE 0.5 mg/dL (0.4-1.0); MAGNESIUM 1.8 mg/dL (1.7-2.8); POTASSIUM 4.4 mmol/L (3.5-5.0)
[2020-05-14 05:16] LABS: ABNORMAL LYMPHS % (MANUAL) 0 %
[2020-05-14 05:38] LABS: BAND NEUTROPHILS % (MANUAL) 1 %; DIFFERENTIAL COMMENT MANUAL DIFFERENTIAL; EOSINOPHILS # (MANUAL) 2.8 10^3/uL (0-0.7); LYMPHOCYTES # (MANUAL) 1.8 10^3/uL (1.5-3.5); LYMPHOCYTES % (MANUAL) 13 %; MONOCYTES # (MANUAL) 0.7 10^3/uL (0.0-1.0); NEUTROPHILS # (MANUAL) 8.7 10^3/uL (1.5-6.6); PLATELET ESTIMATE, MANUAL NORMAL (130-450,000) (NORMAL); RBC MORPHOLOGY (MULTIPLE) NORMAL APPEARANCE (NORMAL)
[2020-05-14] MEDS: SACCHAROMYCES BOULARDII 250 MG CAPSULE PO SCH (08:40)
[2020-05-14] MEDS: AZITHROMYCIN 250 MG TABLET PO SCH (08:40)
[2020-05-14] MEDS: cefTRIAXone 2 GM in SODIUM CHLORIDE 0.9% MINIBAG 100 ML IV SCH (08:41)
[2020-05-14] MEDS: ENOXAPARIN 40 MG/0.4 ML SYRINGE SUBQ SCH (08:41)
--- NOTE | 2020-05-14 10:54 | Discharge Plan ---
Discharge Plan Problem Reviewed?: Yes Disposition: 50 Hospice/Home DC/Xfer Condition: Poor Prescriptions: LORazepam [Ativan] 0.5 mg PO Q6H PRN #15 tablet PRN Reason: Agitation cefUROXime axetiL [Ceftin] 500 mg PO Q12H #14 tablet Saccharomyces Boulardii [Florastor] 250 mg PO BIDWM #14 cap Morphine Sulfate [Morphine Sulf Oral (Roxanol)] 5 mg PO Q2H PRN #30 ml PRN Reason: Pain/Dyspnea Diet: Regular Activity Restrictions: Activity as Tolerated Shower Restrictions: No (fall precaution) Instruction Topics: Cefuroxime tablets, Cancer Lung, Bone Metastasis, Pneumonia, Hospice, Hospice Start, Hospice Pain Management Health Concerns: metastatic lung cancer, hospice care, pneumonia Plan of Treatment: As hospice team and we discussed with you, you hope to have hospice care for your self. Hospice team saw you on yesterday, as the plan, we discharge you on home with hospice care. You report you may followup with your oncology care on next week. Pain Medication Morphine and Anti-anxiety medication Ativan are prescribed for you. Antibiotics Ceftin is prescribed for you to finish the treatment course for your pneumonia infection. Care Goals: quality of life Assessment: Discussed the care plan with you, answered your question, you understood. Additional Instructions or Follow Up instructions: You may followup with hospice care in your home. No Smoking: If you smoke, Please STOP! Call for help.
--- NOTE | 2020-05-14 11:17 | DISCHARGE SUMMARY ---
Discharge Summary Admit Date: 05/12/20 Discharge Date: 05/14/20 Discharging Provider: Danny Tamayo Condition at Discharge: Poor Discharge Disposition: 50 Hospice/Home DC/Xfer Discharge Facility Name: home - DIAGNOSES Discharge Diagnoses with Status of Each Condition: (1)encounter to hospice care pt her self and pt's daughter request to have hospice care. we consulted with hospice team, they will followup with pt after pt was d/c. pt is prescribed Morphine and ativan for her hospice care. pt has Metastatic lung cancer to Bone and liver. we also recognize pt plan to see her oncologist in [place] in next week. (2) Sepsis pt had lower degree of Fever on last night, patient had elevated WBC, patient oxygen saturation is drop with cough. pt was treated for pneumonia in hospital. pt is prescribed antibiotics for d/c (3)hypokalemia resolved (4) Metastatic adenocarcinoma She unfortunately has metastatic adenocarcinoma of the lung. This was confirmed on PET scan. pt plan to see her oncologist in [place] in next week. Discussed our image studies to pt and pt's daughter, and answered their questions. (5) Syncope and collapse pt is stable in the hospital. This appears to be a vasovagal episode but also this could be caused related to orthostasis relative to hypovolemia given her poor oral intake and diarrhea. Followup with hospice care. (6) Hypertension stable, (7) Diarrhea pt's diarrhea is good controlled. pt has loose and small brown bowel movement. C. difficile is negative. advise keep hydration at home (8) Dehydration resolved (9) Left hip pain x-ray of left hip show asymmetric lytic appearance of left femur head. Patient has metastatic lung disease to most of her bone, and liver. Discussed all image studies with pt and her daughter. pt is prescribed Morphine and Ativan for her hospice care. - HPI History of Present Illness: refer from Dr. Vaca's HPI on 05/12/20 This is a 84-year-old female with a past medical history significant for hypertension, stage I adenocarcinoma of the left upper lobe of the lung status post SBRT who presents today after having a syncopal episode at home. She tells me that she has been quite weak and fatigued these past few days with poor oral intake. She also had diarrhea a few days ago which stopped and then she became constipated. This morning she went to go have a bowel movement she had another episode of diarrhea when all of a sudden she felt nauseous, she did not vomit, and diaphoretic. She passed out immediately after. She reports no chest pain or palpitations from what she can recall prior to the event. She reports no prior episodes of syncope. She currently denies any chest pain or dyspnea. She reports an occasional cough that occurs just at night. She recently had a PET scan as there was concern for metastatic disease and this did unfortunately confirm metastatic disease involving most of her bones as well as liver meta stasis. She had just moved to [facility] from [place] just 2 days ago to be closer to her daughter. She is scheduled to see oncology at [facility] in [place] in about 8 days for follow-up. I did speak with the patient's daughter who states that she contacted hospice and there was a plan to possibly admit her under hospice care tomorrow. The patient has made it quite clear that she does not want any aggressive treatment. She would not want chemotherapy even if it was offered to her. She states that she has not been ambulating very much due to left leg pain at the hip which has been present for quite a few months. She normally uses a walker to help her pivot into a wheelchair which she uses to get around. She reports minimal abdominal pain at this time. She has not noticed any blood in her stool. Denies any dysuria, urgency. She denies any focal deficits just feels generally weak. In the emergency department, she was found to be afebrile. Her heart rate was in the 80s. She was initially hypotensive with systolic in the 90s but this improved after receiving IV fluids. She was not tachypneic and saturating well on room air. Were significant for a white count of 17.2 with a left shift. Her potassium was 2.9. BUN was 30 and her creatinine was 1.0. Chest x-ray revealed 3 left rib fractures of undetermined age. Given her presentation, medicine was consulted for admission. I did discuss goals of care with the patient who confirms that she is a DNR. - HOSPITAL COURSE Hospital Course: Patient was admitted for syncope, collapse and diarrhea. Unfortunately patient has metastatic lung cancer to most of her bone and liver which was confirmed by PET scan. Patient's C. difficile test is negative. after hydration, Bowel rest, Diarrhea is controlled. Patient has no syncope in hospital. Patient and patient's daughter request to have hospice care. Hospice team was consulted, and will follow up with patient at home for hospice care. While patient state she still want to see oncologist next week. He also developed spotted fever in the hospital. Patient had elevated WBC, Slightly drop oxygen saturation With cough. Pt was Treated with antibiotics in the hospital and patient is prescribed oral antibiotics in the discharge. After Treated in the hospital, patient was discharged in hemodynamically stable condition. - ALLERGIES Allergies/Adverse Reactions: Allergies Allergy/AdvReac Type Severity Reaction Status Date / Time metformin AdvReac Unknown Verified 05/12/20 12:25 - MEDICATIONS Home Medications: Ambulatory Orders Medication Instructions Recorded Confirmed Aspirin [[place] Aspirin] 81 mg PO DAILY 05/12/20 05/13/20 Gabapentin [Neurontin] 300 mg PO DAILY PM 05/12/20 05/12/20 Hydrochlorothiazide 25 mg PO DAILY 05/12/20 05/13/20 Lisinopril [Prinivil] 10 mg PO DAILY 05/12/20 05/13/20 Omeprazole Magnesium 20 mg PO QDAC 05/12/20 05/13/20 traZODone [Desyrel] 100 mg PO HS 05/12/20 05/12/20 HYDROcod/ACETAM 5/325 [[place] 5/325] 1 tab PO Q4H PRN 05/13/20 05/13/20 amLODIPine [Norvasc] 5 mg PO DAILY 05/13/20 05/13/20 LORazepam [Ativan] 0.5 mg PO Q6H PRN #15 tablet 05/14/20 Morphine Sulfate [Morphine Sulf 5 mg PO Q2H PRN #30 ml 05/14/20 Oral (Roxanol)] Saccharomyces Boulardii [Florastor] 250 mg PO BIDWM #14 cap 05/14/20 cefUROXime axetiL [Ceftin] 500 mg PO Q12H #14 tablet 05/14/20 - PHYSICAL EXAM AT DISCHARGE General Appearance: positive: No acute distress, Alert. negative: Lethargic Eyes Bilateral: positive: Normal inspection, PERRL, No lid inflammation ENT: positive: ENT inspection nml, No signs of dehydration. negative: Purulent nasal drainage Neck: positive: Nml inspection, Trachea midline. negative: Thyromegaly, Tracheal deviation Respiratory: positive: No respiratory distress. negative: Wheezes Cardiovascular: positive: Regular rate & rhythm, No murmur. negative: Tachycardia, Bradycardia, Systolic murmur, Diastolic murmur Peripheral Pulses: positive: 2+ Abdomen: positive: Non-tender, Nml bowel sounds, No distention. negative: Tenderness, Guarding, Rebound Back: positive: Nml inspection Skin: positive: Color nml, Warm, Dry. negative: Cyanosis, Diaphoresis Extremities: positive: Non-tender, Nml appearance. negative: Calf tenderness Neurologic/Psychiatric: positive: Oriented x3, Sensation nml, Mood/affect nml. negative: Sensory loss, Facial droop, Slurred/abnml speech - LABS Result Diagrams: 05/14/20 04:51 05/14/20 04:51 - SEPSIS Current Stage of Sepsis: Sepsis Possible source of Sepsis: Pulmonary Sepsis Criteria: Recorded Temperature greater than 38.3C or Less than 36C, WBC count greater than 12,000 or less than 4000 - FOLLOW UP Follow Up: As hospice team and we discussed with you, you hope to have hospice care for your self. Hospice team saw you on yesterday, as the plan, we discharge you on home with hospice care. You report you may followup with your oncology care on next week. Pain Medication Morphine and Anti-anxiety medication Ativan are prescribed for you. Antibiotics Ceftin is prescribed for you to finish the treatment course for your pneumonia infection. You may followup with hospice care in your home. - TIME SPENT Time Spent in Discharge (Minutes): 30
[2020-05-14 11:38] VITALS: BP 137/47
== END 2020-05-14 13:18 | disposition hospice, home (50) | DRG 871 ==
LOC: ED 11:27 → MS2 16:59 → OBSVTOIN 05-13 13:24
PROVIDERS: ADMIT Nurse Practitioner Gerontology; ATTEND Nurse Practitioner Gerontology
DX: A41.9 Sepsis, unspecified organism (principal); J18.9 Pneumonia, unspecified organism; C34.12 Malignant neoplasm of upper lobe, left bronchus or lung; C78.7 Secondary malignant neoplasm of liver and intrahepatic bile duct; C79.51 Secondary malignant neoplasm of bone; E87.6 Hypokalemia; Z51.5 Encounter for palliative care; R55 Syncope and collapse; I10 Essential (primary) hypertension; R19.7 Diarrhea, unspecified; E86.0 Dehydration; M25.552 Pain in left hip; Z66 Do not resuscitate; I95.9 Hypotension, unspecified; R01.1 Cardiac murmur, unspecified; Z92.3 Personal history of irradiation; Z20.822 Contact with and (suspected) exposure to COVID-19; R53.1 Weakness; R53.83 Other fatigue; K59.00 Constipation, unspecified; R05 Cough; Z87.891 Personal history of nicotine dependence; Z99.3 Dependence on wheelchair; R63.0 Anorexia; Z68.29 Body mass index [BMI] 29.0-29.9, adult
CPT/HCPCS: 36415; 71045; 73502; 80048; 80053; 81001; 83605; 83690; 83735; 84484; 85025; 87040; 87493; 87631; 93005; 96361; 96365; 96366; 96367; 96368; 96372; 96375; 99284; 99285; A9270; G0378; J1650; J3411; J7120; 0202U; 81003; 84132; 87086